=== PATIENT | male | born 1995 | race Caucasian/White ===

== ENCOUNTER 2016-10-05 20:18 | Emergency (ER) | payer MEDICAID ==
[~2016-10-05] VITALS: Ht 180.3 cm; Wt 111.4 kg
[~2016-10-05 20:18] MED LIST: OLAN7.5T2 PO
[2016-10-05 21:17] LABS: BASOPHILS % (AUTO) 0.4 % (0.0-2.0); EOSINOPHILS % (AUTO) 1.8 % (1.0-6.0); HEMATOCRIT 48.5 % (41-53); HEMOGLOBIN 16.5 g/dL (13.5-17.5); LYMPHOCYTES # (AUTO) 2.7 K/uL (1.0-4.8); LYMPHOCYTES % (AUTO) 30.1 % (22.0-44.0); MEAN CORPUSCULAR HEMOGLOBIN 29.8 pg (26.0-34.0); MEAN CORPUSCULAR VOLUME 88 fL (80-100); MONOCYTES # (AUTO) 0.6 K/uL (0.1-1.0); MONOCYTES % (AUTO) 6.4 % (2.0-9.0); NEUTROPHILS # (AUTO) 5.4 K/uL (1.8-7.7); NEUTROPHILS % (AUTO) 61.3 % (40.0-70.0); PLATELET COUNT (AUTO) 191 K/uL (150-450); RED BLOOD CELL COUNT(AUTO) 5.53 MIL/uL (4.50-5.90); WHITE BLOOD COUNT (AUTO) 8.9 K/uL (4.5-11.0)
[2016-10-05 21:27] LABS: ANION GAP 8 mmol/L (8-16); CALCIUM, TOTAL 9.4 mg/dL (8.8-10.5); CARBON DIOXIDE 30 mmol/L (22-29); CHLORIDE 103 mmol/L (98-107); CREATININE 0.84 mg/dL (0.60-1.30); GLOMERULAR FILTR. RATE CALC > 60 mL/min (>60); POTASSIUM 4.1 mmol/L (3.5-5.1); SODIUM SERUM 141 mmol/L (136-145); UREA NITROGEN, BLOOD 15 mg/dL (7-18)
[2016-10-05 21:33] LABS: ALANINE AMINOTRANSFERASE 62 U/L (12-78); ALBUMIN 4.2 g/dL (3.4-5.0); ASPARTATE AMINOTRANSFERASE 25 U/L (15-37); BILIRUBIN,TOTAL 0.4 mg/dL (0.1-1.0); TOTAL PROTEIN, SERUM 7.9 g/dL (6.4-8.2)
[2016-10-05 22:30] LABS: APPEARANCE,URINE CLEAR (CLEAR); GLUCOSE, URINE (UA) NEGATIVE (NEGATIVE); KETONES,URINE NEGATIVE (NEGATIVE); LEUKOCYTE ESTERASE ,URINE NEGATIVE (NEGATIVE); OCCULT BLOOD,URINE NEGATIVE (NEGATIVE); PROTEIN,URINE NEGATIVE (NEGATIVE)
[2016-10-05 22:31] LABS: ADD UA MICROSCOPIC NO
[2016-10-05 22:54] VITALS: BP 127/79
== END 2016-10-05 22:56 | disposition home or self-care (01) ==
LOC: EMS 20:20
DX: G40.909 Epilepsy, unspecified, not intractable, without status epilepticus (principal); R11.2 Nausea with vomiting, unspecified; F17.210 Nicotine dependence, cigarettes, uncomplicated; F19.90 Other psychoactive substance use, unspecified, uncomplicated
CPT/HCPCS: 99284; 99406

== ENCOUNTER 2016-10-25 20:21 | Inpatient (IN) | payer MEDICAID ==
[~2016-10-25] VITALS: Ht 180.3 cm; Wt 110.9 kg
[2016-10-26 01:20] VITALS: BP 154/79
[2016-10-26] MEDS ORDERED: ZOLPIDEM TARTRATE 10 MG TABLET PO PRN (01:45)
[2016-10-26 02:19] VITALS: BP 139/86
[2016-10-26] MEDS ORDERED: IBUPROFEN 400 MG TABLET PO PRN (06:00)
[2016-10-26] MEDS ORDERED: ACETAMINOPHEN 325 MG TABLET PO PRN (06:00)
[2016-10-26 08:37] LABS: BASOPHILS % (AUTO) 0.3 % (0.0-2.0); EOSINOPHILS % (AUTO) 2.8 % (1.0-6.0); HEMATOCRIT 46.3 % (41-53); HEMOGLOBIN 15.8 g/dL (13.5-17.5); LYMPHOCYTES # (AUTO) 3.2 K/uL (1.0-4.8); LYMPHOCYTES % (AUTO) 37.5 % (22.0-44.0); MEAN CORPUSCULAR HEMOGLOBIN 30.5 pg (26.0-34.0); MEAN CORPUSCULAR HGB CONC 34.2 G/dL (31.0-37.0); MEAN CORPUSCULAR VOLUME 89 fL (80-100); MONOCYTES # (AUTO) 0.6 K/uL (0.1-1.0); MONOCYTES % (AUTO) 7.2 % (2.0-9.0); NEUTROPHILS # (AUTO) 4.5 K/uL (1.8-7.7); NEUTROPHILS % (AUTO) 52.2 % (40.0-70.0); PLATELET COUNT (AUTO) 157 K/uL (150-450); RED BLOOD CELL COUNT(AUTO) 5.19 MIL/uL (4.50-5.90); RED CELL DISTRIBUTION WIDTH 13.3 % (11.5-14.5); WHITE BLOOD COUNT (AUTO) 8.6 K/uL (4.5-11.0)
[2016-10-26] MEDS: NICOTINE 21 MG/24 HOUR PATCH TD SCH (08:45)
[2016-10-26 08:49] LABS: HEMOGLOBIN A1C 5.2 % (4.5-6.2)
[2016-10-26 08:54] VITALS: BP 140/79
[2016-10-26 09:31] LABS: ALANINE AMINOTRANSFERASE 59 U/L (12-78); ALBUMIN 3.6 g/dL (3.4-5.0); ANION GAP 10 mmol/L (8-16); ASPARTATE AMINOTRANSFERASE 26 U/L (15-37); BILIRUBIN,TOTAL 0.4 mg/dL (0.1-1.0); CALCIUM, TOTAL 8.4 mg/dL (8.8-10.5); CARBON DIOXIDE 26 mmol/L (22-29); CHLORIDE 105 mmol/L (98-107); CREATININE 0.74 mg/dL (0.60-1.30); GLOMERULAR FILTR. RATE CALC > 60 mL/min (>60); SODIUM SERUM 141 mmol/L (136-145); TOTAL PROTEIN, SERUM 6.6 g/dL (6.4-8.2); UREA NITROGEN, BLOOD 14 mg/dL (7-18)
[2016-10-26] MEDS: HALOPERIDOL 5 MG TABLET PO PRN ×2 (09:58→12:04)
[2016-10-26] MEDS: LORazepam 2 MG TABLET PO PRN (13:32)
[2016-10-26 16:31] VITALS: BP 120/87
[2016-10-26] MEDS: SIMVASTATIN 10 MG TABLET PO SCH (21:06)
[2016-10-26] MEDS: OLANZapine 5 MG TABLET PO SCH (21:06)
[2016-10-26] MEDS: FLUoxetine HCL 20 MG CAPSULE PO SCH (21:06)
[2016-10-27 00:15] VITALS: BP 122/78
[2016-10-27] MEDS: NICOTINE 21 MG/24 HOUR PATCH TD SCH (09:53)
[2016-10-27 16:24] VITALS: BP 136/74
[2016-10-27] MEDS: SIMVASTATIN 10 MG TABLET PO SCH (20:31)
[2016-10-27] MEDS: OLANZapine 5 MG TABLET PO SCH (20:31)
[2016-10-27] MEDS: FLUoxetine HCL 20 MG CAPSULE PO SCH (20:32)
[2016-10-28 08:58] VITALS: BP 132/63
[2016-10-28] MEDS: FLUoxetine HCL 20 MG CAPSULE PO SCH ×2 (09:00→10:28)
[2016-10-28] MEDS: NICOTINE 21 MG/24 HOUR PATCH TD SCH (09:27)
[2016-10-28 16:00] VITALS: BP 131/90
[2016-10-28] MEDS: OLANZapine 5 MG TABLET PO SCH (20:04)
[2016-10-28] MEDS: SIMVASTATIN 10 MG TABLET PO SCH (20:04)
[2016-10-29 04:51] VITALS: BP 124/80
[2016-10-29] MEDS: FLUoxetine HCL 20 MG CAPSULE PO SCH ×3 (08:42→10:36)
[2016-10-29] MEDS: NICOTINE 21 MG/24 HOUR PATCH TD SCH (08:43)
[2016-10-29 08:54] VITALS: BP 134/77
[2016-10-29] MEDS: LORazepam 2 MG TABLET PO PRN (15:13)
[2016-10-29 16:35] VITALS: BP 137/78
[2016-10-29] MEDS ORDERED: SIMV10TA2 PO (19:18)
[2016-10-29] MEDS ORDERED: FLUO20CA30 PO (19:19)
== END 2016-10-29 20:58 | disposition home or self-care (01) | DRG 750 ==
LOC: B2S 10-26 01:47
PROVIDERS: ADMIT Psychiatry & Neurology Psychiatry; ATTEND Psychiatry & Neurology Psychiatry
DX: F25.0 Schizoaffective disorder, bipolar type (principal); G40.909 Epilepsy, unspecified, not intractable, without status epilepticus; R45.851 Suicidal ideations; F12.90 Cannabis use, unspecified, uncomplicated; F10.10 Alcohol abuse, uncomplicated; E78.5 Hyperlipidemia, unspecified; F17.210 Nicotine dependence, cigarettes, uncomplicated; F99 Mental disorder, not otherwise specified; Z81.8 Family history of other mental and behavioral disorders; Z91.5 Personal history of self-harm
CPT/HCPCS: 83036; 84439; 84443

== ENCOUNTER 2017-06-01 23:43 | Inpatient (IN) | payer MEDICAID, OTHER ==
[~2017-06-01] VITALS: Ht 180.3 cm; Wt 106.1 kg
[~2017-06-01 23:43] MED LIST changes: +FLUO20CA30 PO; -OLAN7.5T2 PO; +SIMV10TA2 PO
[2017-06-02] MEDS ORDERED: BUSP5TAB20 PO (03:02)
[2017-06-02] MEDS ORDERED: [UNRECOGNIZED DRUG - REMARK] PO (03:02)
[2017-06-02] MEDS ORDERED: SEIZURE MED PO (03:02)
[2017-06-02] MEDS ORDERED: ZOLPIDEM TARTRATE 10 MG TABLET PO PRN (03:45)
[2017-06-02] MEDS ORDERED: QUEtiapine FUMARATE 100 MG TABLET PO PRN (03:45)
[2017-06-02 05:05] LABS: BASOPHILS % (AUTO) 0.4 % (0.0-2.0); EOSINOPHILS % (AUTO) 2.6 % (1.0-6.0); HEMATOCRIT 44.7 % (41-53); HEMOGLOBIN 15.7 g/dL (13.5-17.5); LYMPHOCYTES # (AUTO) 3.2 K/uL (1.0-4.8); LYMPHOCYTES % (AUTO) 32.5 % (22.0-44.0); MEAN CORPUSCULAR HEMOGLOBIN 31.3 pg (26.0-34.0); MEAN CORPUSCULAR HGB CONC 35.2 G/dL (31.0-37.0); MEAN CORPUSCULAR VOLUME 89 fL (80-100); MONOCYTES # (AUTO) 0.7 K/uL (0.1-1.0); MONOCYTES % (AUTO) 6.7 % (2.0-9.0); NEUTROPHILS # (AUTO) 5.7 K/uL (1.8-7.7); NEUTROPHILS % (AUTO) 57.8 % (40.0-70.0); PLATELET COUNT (AUTO) 178 K/uL (150-450); RED BLOOD CELL COUNT(AUTO) 5.03 MIL/uL (4.50-5.90); RED CELL DISTRIBUTION WIDTH 13.1 % (11.5-14.5); WHITE BLOOD COUNT (AUTO) 9.8 K/uL (4.5-11.0)
[2017-06-02 05:13] LABS: ANION GAP 12 mmol/L (8-16); CALCIUM, TOTAL 8.7 mg/dL (8.8-10.5); CARBON DIOXIDE 25 mmol/L (22-29); CHLORIDE 104 mmol/L (98-107); CREATININE 0.68 mg/dL (0.60-1.30); GLOMERULAR FILTR. RATE CALC > 60 mL/min (>60); POTASSIUM 3.4 mmol/L (3.5-5.1); SODIUM SERUM 141 mmol/L (136-145); UREA NITROGEN, BLOOD 12 mg/dL (7-18)
[2017-06-02 05:18] LABS: ALANINE AMINOTRANSFERASE 58 U/L (12-78); ALBUMIN 3.9 g/dL (3.4-5.0); ASPARTATE AMINOTRANSFERASE 27 U/L (15-37); BILIRUBIN,TOTAL 0.4 mg/dL (0.1-1.0); TOTAL PROTEIN, SERUM 7.4 g/dL (6.4-8.2)
[2017-06-02 17:00] VITALS: BP 144/75
[2017-06-02] MEDS ORDERED: ACETAMINOPHEN 325 MG TABLET PO PRN (17:30)
[2017-06-02] MEDS ORDERED: IBUPROFEN 600 MG TABLET PO PRN (17:30)
[2017-06-02 18:00] VITALS: BP 141/78
[2017-06-02] MEDS: LevETIRAcetam 250 MG TABLET PO SCH (18:07)
[2017-06-02] MEDS: LORazepam 1 MG TABLET PO PRN (19:36)
[2017-06-03 08:02] LABS: HEMOGLOBIN A1C 4.9 % (4.5-6.2)
[2017-06-03 09:28] VITALS: BP 128/71
[2017-06-03] MEDS: LevETIRAcetam 250 MG TABLET PO SCH ×2 (09:33→16:37)
[2017-06-03] MEDS: SIMVASTATIN 10 MG TABLET PO SCH (09:33)
[2017-06-03] MEDS: NICOTINE 21 MG/24 HOUR PATCH TD SCH (09:37)
[2017-06-03 10:07] LABS: APPEARANCE,URINE CLEAR (CLEAR); GLUCOSE, URINE (UA) NEGATIVE (NEGATIVE); KETONES,URINE NEGATIVE (NEGATIVE); LEUKOCYTE ESTERASE ,URINE NEGATIVE (NEGATIVE); OCCULT BLOOD,URINE NEGATIVE (NEGATIVE); PH,URINE 5.5 (5.0-8.0); PROTEIN,URINE NEGATIVE (NEGATIVE)
[2017-06-03 10:08] LABS: ADD UA MICROSCOPIC NO
[2017-06-03] MEDS: FLUoxetine HCL 20 MG CAPSULE PO SCH (12:49)
[2017-06-03] MEDS: LORazepam 1 MG TABLET PO PRN (16:35)
[2017-06-03 17:00] VITALS: BP 132/80
[2017-06-03] MEDS ORDERED: OLANZapine 5 MG TABLET PO SCH (21:00)
[2017-06-04 08:54] VITALS: BP 104/56
[2017-06-04] MEDS ORDERED: LevETIRAcetam 250 MG TABLET PO SCH (09:00)
[2017-06-04] MEDS: SIMVASTATIN 10 MG TABLET PO SCH (09:06)
[2017-06-04] MEDS: FLUoxetine HCL 20 MG CAPSULE PO SCH (09:06)
[2017-06-04] MEDS: NICOTINE 21 MG/24 HOUR PATCH TD SCH (09:08)
[2017-06-04] MEDS ORDERED: OLAN5TAB2 PO (09:12)
[2017-06-04] MEDS ORDERED: FLUO-191 PO (09:12)
[2017-06-04] MEDS ORDERED: LEVE250T55 PO (09:15)
== END 2017-06-04 10:30 | disposition home or self-care (01) | DRG 750 ==
LOC: BV PSY EVL 06-02 02:41 → 3EI 06-02 13:36
PROVIDERS: ADMIT Psychiatry & Neurology Psychiatry; ATTEND Psychiatry & Neurology Child & Adolescent Psychiatry
DX: F20.9 Schizophrenia, unspecified (principal); F31.4 Bipolar disorder, current episode depressed, severe, without psychotic features; R45.851 Suicidal ideations; E78.5 Hyperlipidemia, unspecified; F17.210 Nicotine dependence, cigarettes, uncomplicated; F90.9 Attention-deficit hyperactivity disorder, unspecified type; F12.90 Cannabis use, unspecified, uncomplicated; Z53.20 Procedure and treatment not carried out because of patient's decision for unspecified reasons; F41.9 Anxiety disorder, unspecified; Z79.899 Other long term (current) drug therapy
CPT/HCPCS: 83036; 84436; 84439; 84443; 99285; 99406; G0480

== ENCOUNTER 2017-08-04 17:13 | Inpatient (IN) | payer MEDICAID ==
[~2017-08-04] VITALS: Ht 180.3 cm; Wt 104.8 kg
[~2017-08-04 17:13] MED LIST changes: +FLUO-191 PO; -FLUO20CA30 PO; +LEVE250T55 PO; +OLAN5TAB2 PO
[2017-08-04] MEDS ORDERED: ZOLPIDEM TARTRATE 10 MG TABLET PO PRN (18:00)
[2017-08-04] MEDS ORDERED: HALOPERIDOL 5 MG TABLET PO PRN (18:00)
[2017-08-04 18:40] VITALS: BP 129/69
[2017-08-04 19:09] VITALS: BP 120/71
[2017-08-04] MEDS ORDERED: PNEUMOCOCCAL VACCINE POLYVALENT 0.5 ML VIAL [PPSV23] IM ONE (19:15)
[2017-08-04] MEDS: SIMVASTATIN 10 MG TABLET PO SCH (20:38)
[2017-08-05 00:50] VITALS: BP 111/65
[2017-08-05 08:10] LABS: BASOPHILS % (AUTO) 0.4 % (0.0-2.0); EOSINOPHILS % (AUTO) 3.1 % (1.0-6.0); HEMATOCRIT 42.9 % (41-53); HEMOGLOBIN 15.1 g/dL (13.5-17.5); LYMPHOCYTES # (AUTO) 2.2 K/uL (1.0-4.8); LYMPHOCYTES % (AUTO) 35.1 % (22.0-44.0); MEAN CORPUSCULAR HEMOGLOBIN 31.3 pg (26.0-34.0); MEAN CORPUSCULAR HGB CONC 35.3 G/dL (31.0-37.0); MEAN CORPUSCULAR VOLUME 89 fL (80-100); MONOCYTES # (AUTO) 0.4 K/uL (0.1-1.0); MONOCYTES % (AUTO) 6.1 % (2.0-9.0); NEUTROPHILS # (AUTO) 3.4 K/uL (1.8-7.7); NEUTROPHILS % (AUTO) 55.3 % (40.0-70.0); PLATELET COUNT (AUTO) 157 K/uL (150-450); RED BLOOD CELL COUNT(AUTO) 4.84 MIL/uL (4.50-5.90); WHITE BLOOD COUNT (AUTO) 6.2 K/uL (4.5-11.0)
[2017-08-05 08:34] VITALS: BP 129/61
[2017-08-05 08:36] LABS: ALANINE AMINOTRANSFERASE 43 U/L (12-78); ALBUMIN 3.5 g/dL (3.4-5.0); ANION GAP 5 mmol/L (8-16); ASPARTATE AMINOTRANSFERASE 16 U/L (15-37); BILIRUBIN,TOTAL 0.3 mg/dL (0.1-1.0); CARBON DIOXIDE 28 mmol/L (22-29); CHLORIDE 105 mmol/L (98-107); CHOL/HDL RATIO 6.7 (4.2-7.3); CREATININE 0.73 mg/dL (0.60-1.30); GLOMERULAR FILTR. RATE CALC > 60 mL/min (>60); SODIUM SERUM 138 mmol/L (136-145); TOTAL PROTEIN, SERUM 6.9 g/dL (6.4-8.2); UREA NITROGEN, BLOOD 10 mg/dL (7-18)
[2017-08-05] MEDS: NICOTINE 21 MG/24 HOUR PATCH TD SCH (08:57)
[2017-08-05] MEDS: LevETIRAcetam 250 MG TABLET PO SCH ×2 (08:57→16:18)
[2017-08-05] MEDS ORDERED: ALBUTEROL SULFATE HFA 90 MCG/PUFF 8 GM INHALER IH PRN (09:00)
[2017-08-05] MEDS ORDERED: BACITRACIN 28.4 GM OINTMENT TP PRN (09:00)
[2017-08-05] MEDS ORDERED: CloNIDine HCL 0.1 MG TABLET PO PRN (09:00)
[2017-08-05] MEDS ORDERED: PETROLATUM,WHITE 71 GM JELLY TP PRN (09:00)
[2017-08-05] MEDS ORDERED: MAG HYDROX/AL HYDROX/SIMETH ES 30 ML SUSPENSION UDCUP PO PRN (09:00)
[2017-08-05] MEDS ORDERED: LOPERAMIDE HCL 2 MG CAPSULE PO PRN (09:00)
[2017-08-05] MEDS ORDERED: ACETAMINOPHEN 325 MG TABLET PO PRN (09:00)
[2017-08-05] MEDS ORDERED: ONDANSETRON HCL 4 MG TABLET PO PRN (09:00)
[2017-08-05] MEDS ORDERED: MAGNESIUM HYDROXIDE SUSPENSION 30 ML UDCUP PO PRN (09:00)
[2017-08-05] MEDS ORDERED: BENZOCAINE/MENTHOL LOZENGE MM PRN (09:00)
[2017-08-05] MEDS ORDERED: IBUPROFEN 600 MG TABLET PO PRN (09:00)
[2017-08-05 10:50] LABS: APPEARANCE,URINE TURBID (CLEAR); GLUCOSE, URINE (UA) NEGATIVE (NEGATIVE); KETONES,URINE NEGATIVE (NEGATIVE); LEUKOCYTE ESTERASE ,URINE NEGATIVE (NEGATIVE); OCCULT BLOOD,URINE NEGATIVE (NEGATIVE); PROTEIN,URINE NEGATIVE (NEGATIVE)
[2017-08-05 11:29] LABS: HEMOGLOBIN A1C 4.9 % (4.5-6.2)
[2017-08-05] MEDS: FLUoxetine HCL 20 MG CAPSULE PO SCH (12:05)
[2017-08-05 13:35] LABS: ADD UA MICROSCOPIC NO
[2017-08-05 16:31] VITALS: BP 121/76
[2017-08-05] MEDS: LORazepam 2 MG TABLET PO PRN (17:27)
[2017-08-05] MEDS: SIMVASTATIN 10 MG TABLET PO SCH (21:00)
[2017-08-05] MEDS ORDERED: OLANZapine 5 MG TABLET PO SCH (21:00)
[2017-08-06 06:56] VITALS: BP 107/78
[2017-08-06 08:13] VITALS: BP 109/64
[2017-08-06] MEDS: NICOTINE 21 MG/24 HOUR PATCH TD SCH (08:34)
[2017-08-06] MEDS: FLUoxetine HCL 20 MG CAPSULE PO SCH (08:34)
[2017-08-06] MEDS: LevETIRAcetam 250 MG TABLET PO SCH ×2 (08:34→16:20)
[2017-08-06 12:30] VITALS: BP 112/68
[2017-08-06] MEDS: LORazepam 2 MG TABLET PO PRN (12:30)
== END 2017-08-06 17:25 | disposition home or self-care (01) | DRG 750 ==
LOC: B2S 17:45
DX: F25.9 Schizoaffective disorder, unspecified (principal); G40.909 Epilepsy, unspecified, not intractable, without status epilepticus; R45.851 Suicidal ideations; E78.5 Hyperlipidemia, unspecified; E66.9 Obesity, unspecified; F10.10 Alcohol abuse, uncomplicated; F12.90 Cannabis use, unspecified, uncomplicated; F17.200 Nicotine dependence, unspecified, uncomplicated; G47.00 Insomnia, unspecified; K21.9 Gastro-esophageal reflux disease without esophagitis; Z59.0 Homelessness; Z71.6 Tobacco abuse counseling; Z71.41 Alcohol abuse counseling and surveillance of alcoholic; Z71.51 Drug abuse counseling and surveillance of drug abuser
CPT/HCPCS: 80307; 83036; 84439; 84443; G0482

== ENCOUNTER 2017-12-06 22:09 | Inpatient (IN) | payer MEDICAID, OTHER ==
[~2017-12-06] VITALS: Ht 180.3 cm; Wt 104.8 kg
[2017-12-06 22:28] LABS: GLUCOSE,POINT OF CARE 92 MG/DL (70-110)
[2017-12-06 23:10] LABS: BASOPHILS % (AUTO) 0.5 % (0.0-2.0); EOSINOPHILS % (AUTO) 1.3 % (1.0-6.0); HEMATOCRIT 47.1 % (41-53); HEMOGLOBIN 16.4 g/dL (13.5-17.5); LYMPHOCYTES # (AUTO) 2.4 K/uL (1.0-4.8); LYMPHOCYTES % (AUTO) 29.8 % (22.0-44.0); MEAN CORPUSCULAR HEMOGLOBIN 30.2 pg (26.0-34.0); MEAN CORPUSCULAR HGB CONC 34.9 G/dL (31.0-37.0); MEAN CORPUSCULAR VOLUME 87 fL (80-100); MONOCYTES # (AUTO) 0.5 K/uL (0.1-1.0); MONOCYTES % (AUTO) 5.8 % (2.0-9.0); NEUTROPHILS # (AUTO) 5.1 K/uL (1.8-7.7); NEUTROPHILS % (AUTO) 62.6 % (40.0-70.0); PLATELET COUNT (AUTO) 205 K/uL (150-450); RED BLOOD CELL COUNT(AUTO) 5.43 MIL/uL (4.50-5.90); RED CELL DISTRIBUTION WIDTH 13.4 % (11.5-14.5)
[2017-12-06 23:22] LABS: ANION GAP 11 mmol/L (8-16); CALCIUM, TOTAL 9.3 mg/dL (8.8-10.5); CARBON DIOXIDE 26 mmol/L (22-29); CHLORIDE 105 mmol/L (98-107); CREATININE 0.72 mg/dL (0.60-1.30); GLOMERULAR FILTR. RATE CALC > 60 mL/min (>60); GLUCOSE,RANDOM 94 mg/dL (70-110); POTASSIUM 3.8 mmol/L (3.5-5.1); SODIUM SERUM 142 mmol/L (136-145); UREA NITROGEN, BLOOD 15 mg/dL (7-18)
[2017-12-06 23:26] LABS: ALANINE AMINOTRANSFERASE 36 U/L (12-78); ALBUMIN 4.4 g/dL (3.4-5.0); ALKALINE PHOSPHATASE 82 U/L (46-116); ASPARTATE AMINOTRANSFERASE 23 U/L (15-37); BILIRUBIN,TOTAL 0.5 mg/dL (0.1-1.0); TOTAL PROTEIN, SERUM 7.8 g/dL (6.4-8.2)
[2017-12-07 00:11] LABS: AMPHET/METH SCREEN,URINE NEGATIVE (NEGATIVE); BARBITURATE SCREEN, URINE NEGATIVE (NEGATIVE); BENZODIAZEPINES SCREEN,URINE NEGATIVE (NEGATIVE); CANNABINOID SCREEN,URINE NEGATIVE (NEGATIVE); COCAINE SCREEN,URINE NEGATIVE (NEGATIVE); METHADONE SCREEN, URINE NEGATIVE (NEGATIVE); OPIATE SCREEN,URINE NEGATIVE (NEGATIVE); PHENCYCLIDINE SCREEN,URINE NEGATIVE (NEGATIVE)
[2017-12-07] MEDS ORDERED: LORazepam 2 MG TABLET PO PRN (03:00)
[2017-12-07] MEDS ORDERED: ZOLPIDEM TARTRATE 10 MG TABLET PO PRN (03:00)
[2017-12-07] MEDS ORDERED: HALOPERIDOL 5 MG TABLET PO PRN (03:00)
[2017-12-07 04:25] VITALS: BP 133/68
[2017-12-07 08:54] VITALS: BP 131/91
[2017-12-07] MEDS: LevETIRAcetam 250 MG TABLET PO SCH ×2 (11:16→20:40)
[2017-12-07 17:30] VITALS: BP 143/78
[2017-12-07] MEDS: MIRTAZAPINE 15 MG TABLET PO SCH (20:40)
[2017-12-08 07:05] LABS: CHOL/HDL RATIO 7.2 (4.2-7.3)
[2017-12-08] MEDS: LevETIRAcetam 250 MG TABLET PO SCH ×2 (08:53→20:09)
[2017-12-08] MEDS: ARIPiprazole 5 MG TABLET PO SCH (08:53)
[2017-12-08 10:52] VITALS: BP 127/82
[2017-12-08 17:00] VITALS: BP 130/68
[2017-12-08] MEDS: MIRTAZAPINE 15 MG TABLET PO SCH (20:09)
[2017-12-09] MEDS: LevETIRAcetam 250 MG TABLET PO SCH (09:17)
[2017-12-09] MEDS: ARIPiprazole 5 MG TABLET PO SCH (09:17)
[2017-12-09] MEDS ORDERED: ARIP5TAB8 PO (09:35)
[2017-12-09] MEDS ORDERED: LEVE250T55 PO (09:37)
[2017-12-09] MEDS ORDERED: MIRT15 PO (09:37)
[2017-12-09 09:39] VITALS: BP 125/77
== END 2017-12-09 12:45 | disposition home or self-care (01) | DRG 751 ==
LOC: EMS 22:11 → 3EI 12-07 03:00
PROVIDERS: ADMIT Psychiatry & Neurology Psychiatry; ATTEND Psychiatry & Neurology Psychiatry
DX: F33.3 Major depressive disorder, recurrent, severe with psychotic symptoms (principal); G40.909 Epilepsy, unspecified, not intractable, without status epilepticus; R45.851 Suicidal ideations; I10 Essential (primary) hypertension; E78.5 Hyperlipidemia, unspecified; F60.3 Borderline personality disorder; F17.210 Nicotine dependence, cigarettes, uncomplicated; R73.03 Prediabetes; F12.90 Cannabis use, unspecified, uncomplicated; F41.9 Anxiety disorder, unspecified; F90.9 Attention-deficit hyperactivity disorder, unspecified type; Z82.49 Family history of ischemic heart disease and other diseases of the circulatory system; Z83.3 Family history of diabetes mellitus; Z91.5 Personal history of self-harm; Z71.6 Tobacco abuse counseling
CPT/HCPCS: 82962; G0480

== ENCOUNTER 2018-03-09 23:36 | Inpatient (IN) | payer MEDICAID, OTHER ==
[~2018-03-09] VITALS: Ht 180.3 cm; Wt 97.1 kg
[~2018-03-09 23:36] MED LIST changes: +ARIP5TAB8 PO; -FLUO-191 PO; +MIRT15 PO; -OLAN5TAB2 PO; -SIMV10TA2 PO
[2018-03-10 00:25] LABS: EOSINOPHILS % (AUTO) 2.9 % (1.0-6.0); HEMATOCRIT 41.2 % (41-53); HEMOGLOBIN 14.8 g/dL (13.5-17.5); LYMPHOCYTES % (AUTO) 33.4 % (22.0-44.0); MEAN CORPUSCULAR HEMOGLOBIN 31.4 pg (26.0-34.0); MEAN CORPUSCULAR HGB CONC 35.9 G/dL (31.0-37.0); MEAN CORPUSCULAR VOLUME 88 fL (80-100); MONOCYTES # (AUTO) 0.6 K/uL (0.1-1.0); MONOCYTES % (AUTO) 6.8 % (2.0-9.0); NEUTROPHILS # (AUTO) 5.1 K/uL (1.8-7.7); NEUTROPHILS % (AUTO) 55.9 % (40.0-70.0); PLATELET COUNT (AUTO) 169 K/uL (150-450); RED CELL DISTRIBUTION WIDTH 13.2 % (11.5-14.5)
[2018-03-10 00:33] LABS: ANION GAP 3 mmol/L (8-16); CALCIUM, TOTAL 8.9 mg/dL (8.8-10.5); CARBON DIOXIDE 29 mmol/L (22-29); CHLORIDE 107 mmol/L (98-107); CREATININE 0.79 mg/dL (0.60-1.30); GLOMERULAR FILTR. RATE CALC > 60 mL/min (>60); GLUCOSE,RANDOM 89 mg/dL (70-110); POTASSIUM 3.9 mmol/L (3.5-5.1); SODIUM SERUM 139 mmol/L (136-145); UREA NITROGEN, BLOOD 16 mg/dL (7-18)
[2018-03-10 00:39] LABS: ALANINE AMINOTRANSFERASE 23 U/L (12-78); ALBUMIN 3.7 g/dL (3.4-5.0); ALKALINE PHOSPHATASE 104 U/L (46-116); ASPARTATE AMINOTRANSFERASE 10 U/L (15-37); BILIRUBIN,TOTAL 0.3 mg/dL (0.1-1.0); TOTAL PROTEIN, SERUM 6.7 g/dL (6.4-8.2)
[2018-03-10] MEDS ORDERED: DiphenhydrAMINE HCL 25 MG CAPSULE PO ONE (01:15)
[2018-03-10] MEDS ORDERED: HALOPERIDOL 5 MG TABLET PO PRN (01:30)
[2018-03-10] MEDS ORDERED: LORazepam 2 MG TABLET PO PRN (01:30)
[2018-03-10] MEDS ORDERED: ZOLPIDEM TARTRATE 10 MG TABLET PO PRN (01:30)
[2018-03-10 03:57] VITALS: BP 148/77
[2018-03-10] MEDS ORDERED: ACETAMINOPHEN 325 MG TABLET PO PRN (07:15)
[2018-03-10] MEDS ORDERED: DOCUSATE SODIUM 100 MG CAPSULE PO PRN (07:15)
[2018-03-10] MEDS ORDERED: IBUPROFEN 400 MG TABLET PO PRN (07:15)
[2018-03-10] MEDS ORDERED: CloNIDine HCL 0.1 MG TABLET PO PRN (07:15)
[2018-03-10] MEDS ORDERED: LOPERAMIDE HCL 2 MG CAPSULE PO PRN (07:15)
[2018-03-10] MEDS ORDERED: ONDANSETRON HCL 4 MG TABLET PO PRN (07:15)
[2018-03-10] MEDS ORDERED: ALBUTEROL SULFATE HFA 90 MCG/PUFF 8 GM INHALER IH PRN (07:15)
[2018-03-10] MEDS ORDERED: PETROLATUM,WHITE 71 GM JELLY TP PRN (07:15)
[2018-03-10] MEDS: NICOTINE 14 MG/24 HOUR PATCH TD SCH (09:00)
[2018-03-10 13:42] VITALS: BP 104/52
[2018-03-10] MEDS: LevETIRAcetam 250 MG TABLET PO SCH (20:38)
[2018-03-10] MEDS: MIRTAZAPINE 15 MG TABLET PO SCH (20:39)
[2018-03-10] MEDS ORDERED: LevETIRAcetam 250 MG TABLET PO SCH (21:00)
[2018-03-11 06:48] LABS: BASOPHILS % (AUTO) 0.4 % (0.0-2.0); EOSINOPHILS % (AUTO) 2.9 % (1.0-6.0); HEMATOCRIT 43.2 % (41-53); HEMOGLOBIN 15.4 g/dL (13.5-17.5); LYMPHOCYTES # (AUTO) 1.7 K/uL (1.0-4.8); LYMPHOCYTES % (AUTO) 21.3 % (22.0-44.0); MEAN CORPUSCULAR HEMOGLOBIN 30.9 pg (26.0-34.0); MEAN CORPUSCULAR HGB CONC 35.8 G/dL (31.0-37.0); MEAN CORPUSCULAR VOLUME 86 fL (80-100); MONOCYTES # (AUTO) 0.6 K/uL (0.1-1.0); MONOCYTES % (AUTO) 6.8 % (2.0-9.0); NEUTROPHILS # (AUTO) 5.6 K/uL (1.8-7.7); NEUTROPHILS % (AUTO) 68.6 % (40.0-70.0); PLATELET COUNT (AUTO) 154 K/uL (150-450); RED BLOOD CELL COUNT(AUTO) 4.99 MIL/uL (4.50-5.90); RED CELL DISTRIBUTION WIDTH 13.3 % (11.5-14.5)
[2018-03-11 06:59] LABS: HEMOGLOBIN A1C 5.2 % (4.5-6.2)
[2018-03-11 07:17] LABS: ALANINE AMINOTRANSFERASE 23 U/L (12-78); ALBUMIN 3.6 g/dL (3.4-5.0); ALKALINE PHOSPHATASE 69 U/L (46-116); ANION GAP 5 mmol/L (8-16); ASPARTATE AMINOTRANSFERASE 13 U/L (15-37); BILIRUBIN,TOTAL 0.6 mg/dL (0.1-1.0); CARBON DIOXIDE 32 mmol/L (22-29); CHLORIDE 104 mmol/L (98-107); CHOL/HDL RATIO 5.3 (4.2-7.3); CHOLESTEROL 147 mg/dL (131-200); CREATININE 0.72 mg/dL (0.60-1.30); GLOMERULAR FILTR. RATE CALC > 60 mL/min (>60); GLUCOSE,RANDOM 87 mg/dL (70-110); HDL CHOLESTEROL 28 mg/dL (40-60); LDL CHOL (CALC.) 96 mg/dL (0-130); POTASSIUM 3.9 mmol/L (3.5-5.1); SODIUM SERUM 141 mmol/L (136-145); THYROID STIMULATING HORMONE 1.03 uIU/mL (0.36-3.74); TOTAL PROTEIN, SERUM 6.8 g/dL (6.4-8.2); TRIGLYCERIDES 114 mg/dL (15-150); UREA NITROGEN, BLOOD 11 mg/dL (7-18)
[2018-03-11] MEDS: NICOTINE 14 MG/24 HOUR PATCH TD SCH (09:00)
[2018-03-11 09:30] VITALS: BP 129/89
[2018-03-11] MEDS: ARIPiprazole 5 MG TABLET PO SCH (10:58)
[2018-03-11 16:32] VITALS: BP 128/74
[2018-03-11] MEDS: MIRTAZAPINE 15 MG TABLET PO SCH (21:44)
[2018-03-11] MEDS: LevETIRAcetam 250 MG TABLET PO SCH (21:44)
[2018-03-12 09:11] VITALS: BP 123/71
[2018-03-12] MEDS: ARIPiprazole 5 MG TABLET PO SCH (10:04)
[2018-03-12 16:16] VITALS: BP 110/66
[2018-03-12] MEDS: LevETIRAcetam 250 MG TABLET PO SCH (20:26)
[2018-03-12] MEDS: MIRTAZAPINE 15 MG TABLET PO SCH (20:26)
[2018-03-12] MEDS: NICOTINE 21 MG/24 HOUR PATCH TD SCH (20:27)
[2018-03-12] MEDS ORDERED: LORATADINE 10 MG TABLET PO PRN (20:45)
[2018-03-13 08:00] VITALS: BP 130/67
[2018-03-13] MEDS: ARIPiprazole 5 MG TABLET PO SCH (09:16)
[2018-03-13] MEDS: NICOTINE 21 MG/24 HOUR PATCH TD SCH (09:18)
== END 2018-03-13 14:29 | disposition home or self-care (01) | DRG 750 ==
LOC: EMS 23:37 → 3EI 03-10 02:30
PROVIDERS: ADMIT Psychiatry & Neurology Child & Adolescent Psychiatry; ATTEND Psychiatry & Neurology Child & Adolescent Psychiatry
DX: F25.9 Schizoaffective disorder, unspecified (principal); R45.851 Suicidal ideations; E11.9 Type 2 diabetes mellitus without complications; G40.909 Epilepsy, unspecified, not intractable, without status epilepticus; F10.10 Alcohol abuse, uncomplicated; F17.200 Nicotine dependence, unspecified, uncomplicated; Z71.6 Tobacco abuse counseling; F90.9 Attention-deficit hyperactivity disorder, unspecified type; Z59.0 Homelessness; F19.10 Other psychoactive substance abuse, uncomplicated
CPT/HCPCS: 83036; 84443; 99285; G0480